=== PATIENT | female | born 1990 | race Two or more races ===

== ENCOUNTER 2022-01-13 21:25 | Emergency (ER) | payer OTHER ==
[2022-01-13 21:31] VITALS: BP 118/78; PULSE 80; RESP 20; TEMP 98.1; BMI 26.6
[2022-01-13] MEDS ORDERED: METHOCARBAMOL 500 MG TABLET PO ONE (22:47)
[2022-01-13] MEDS ORDERED: IBUPROFEN 600 MG TABLET (FP) PO ONE ×2 (22:47→22:52)
[2022-01-13] MEDS ORDERED: METHOCARBAMOL 500 MG TABLET ONE (22:52)
== END 2022-01-14 01:03 | disposition home or self-care (01) ==
LOC: JERFT 21:25 → JER 21:25
DX: M54.50 Low back pain, unspecified (principal); V49.40XA Driver injured in collision with unspecified motor vehicles in traffic accident, initial encounter
CPT/HCPCS: 72100-TC-FY; 99283-25

== ENCOUNTER 2022-08-17 04:21 | Day surgery (SDC) | payer OTHER ==
[2022-08-16 09:40] VITALS: BMI 29.2
[2022-08-17 12:01] VITALS: BP 119/83; PULSE 73; RESP 18; TEMP 98
== END 2022-08-17 11:00 | disposition home or self-care (01) ==
LOC: JASU-ENDO 04:21
PROVIDERS: ATTEND Internal Medicine Gastroenterology
PROC: 0DJD8ZZ Inspection of Lower Intestinal Tract, Via Natural or Artificial Opening Endoscopic (ICD-10-PCS; principal; 2022-08-17 09:30)
DX: K64.8 Other hemorrhoids (principal); R10.84 Generalized abdominal pain; K92.1 Melena
CPT/HCPCS: 81025